=== PATIENT | female | born 1970 | race African-American/Black ===

== ENCOUNTER → 2016-07-07 | Outpatient (CLI) | payer BC ==
[~2016-07-07] MED LIST: ASPIRINEC PO; CERTAGEN PO; FLEXERIL PO; VICODIN PO
--- NOTE | ~2016-07-07 | MY11 ---
[facility] A Service of [facility] RADIOLOGY TEXT RESULTS PATIENT: ANA LAURA ROMAN LOCATION: [facility] : [birth year] UNIT #: [id number] AGE: [address]: Cassandra Rose MD SEX: F ORDER DR: [id number] [facility] [address]. [place], [place] [address] [id number] O MR#: [id number] Acc #: [id number] NAME: ANA LAURA ROMAN : 1970 SEX: F STUDY DATE/TIME: 07/07/2016 15:27 UNIT: [facility] ROOM: STUDY DESCRIPTION: MY Mammogram Screening Dig Chauncey Attending Physician: Cassandra Rose M.D. Referring Physician: Self Referral-Refer Use Only Ordering Physician: Cassandra Rose M.D. Primary Care Physician: Cassandra Rose M.D. MEDICAL IMAGING REPORT This report is preliminary unless electronic signature is present EXAM Digital screening mammogram, 07/07/2016 HISTORY 46-year-old woman prior reduction mammoplasties 1998. No risk elevation. Annual screening. COMPARISON Mammograms date to 04/13/2008 with most recent 04/09/2015. FINDINGS Digital imaging of each breast was completed utilizing screening protocol. Review includes FDA-approved CAD device. Breast parenchyma is fatty replaced. Three coarse benign calcifications are again noted in the upper hemisphere of the left breast. I see no interval occurring microcalcifications. There is no suspicious mass and no architectural deformity. IMPRESSION Stable benign calcifications left breast. Negative exam otherwise. Annual screening recommended. Patients over the age of 40 are entered into a reminder system with target due date for the next mammogram. A result letter will also be sent to the patient. BIRADS: 1 Negative Dictated by... Eddi Chaudhry M.D. [facility] A Service [facility] RADIOLOGY TEXT RESULTS PATIENT: ANA LAURA ROMAN LOCATION: [facility] : 66 UNIT #: [id number] AGE: [address]: Cassandra Rose MD SEX: F ORDER DR: THIS IS AN ELECTRONICALLY VERIFIED REPORT Eddi Chaudhry M.D. at 07/08/2016 8:06 AM ALEX/corry TD: 07/08/2016 04:18 JOB #: [id number] MEDICAL IMAGING REPORT Page 1 of 1 COPY
== END | disposition home or self-care (01) ==
LOC: CWCC 15:10
DX: Z12.31 Encounter for screening mammogram for malignant neoplasm of breast (principal)
CPT/HCPCS: G0202